=== PATIENT | male | born 1960 | race Two or more races ===

== ENCOUNTER 2021-11-21 15:41 | Emergency (ER) | payer OTHER ==
[2021-11-21] MEDS ORDERED: PANTOPRAZOLE SODIUM 40 MG VIAL IVPUSH ONE (15:48)
[2021-11-21 15:49] VITALS: BMI 27.3
[2021-11-21] MEDS ORDERED: PANTOPRAZOLE SODIUM 40 MG VIAL ONE (15:52)
[2021-11-21 16:15] LABS: BASO % 0.1 % (0-2.0); HEMATOCRIT 20.5 % (35.4-49); LYMPH % 13.1 % (8-40); MCHC 29.7 g/dl (32.0-35.9); MEAN CELL VOLUME 64.1 fl (80-96); MONO % 7.9 % (3.8-10.2); NEUT % 78.9 % (42.8-82.8); PLATELET COUNT 157 10^3/uL (134-434); RBC 3.19 M/mm3 (4.00-5.60); RDW 16.5 % (11.9-15.9); WHITE BLOOD COUNT 12.7 K/mm3 (4.0-10.0)
[2021-11-21 16:19] LABS: VENOUS BASE EXCESS -5.5 mmol/L (-2-2); VENOUS O2 SATURATION 55.9 % (70-80); VENOUS PCO2 45.5 mmHg (38-52)
[2021-11-21 16:20] LABS: INR 1.35 (0.83-1.09); PROTHROMBIN TIME (PATIENT) 15.6 SEC (9.7-13.0)
[2021-11-21 16:22] LABS: MCH 19.1 pg (25.7-33.7)
[2021-11-21 16:24] LABS: HEMOGLOBIN 6.1 GM/dL (11.7-16.9)
[2021-11-21 16:24] LABS: VENOUS PH 7.279 (7.310-7.410)
[2021-11-21 16:35] LABS: ALBUMIN 2.6 g/dl (3.4-5.0); BLOOD UREA NITROGEN 46.3 mg/dL (7-18); CALCIUM 8.4 mg/dL (8.5-10.1)
[2021-11-21 16:38] LABS: CREATININE 1.1 mg/dL (0.55-1.3)
[2021-11-21 16:40] LABS: ANISOCYTOSIS 3+; BILIRUBIN,TOTAL 0.4 mg/dL (0.2-1); MACROCYTOSIS 0; TEAR DROP CELLS 1+; TOT PROT 5.4 g/dl (6.4-8.2)
[2021-11-21 16:45] LABS: LACTIC ACID 4.4 mmol/L (0.4-2.0)
[2021-11-21] MEDS ORDERED: CEFTRIAXONE 1,000 MG in DEXTROSE 5%-WATER - 50 ML IVPB ONE (18:46)
[2021-11-21] MEDS ORDERED: AZITHROMYCIN IVPB 500 MG in DEXTROSE 5%-WATER - 250 ML IVPB ONE (18:47)
[2021-11-21] MEDS ORDERED: ACETAMINOPHEN 1000 MG/100 ML BAG IVPB ONE (19:48)
[2021-11-21] MEDS ORDERED: ACETAMINOPHEN INJECTION 100 ML IVPB ONE (19:49)
[2021-11-22 02:32] VITALS: BP 120/71; PULSE 96; TEMP 98.7
== END 2021-11-22 02:34 | disposition short-term general hospital (02) ==
LOC: JER 15:41
PROC: 3E03329 Introduction of Other Anti-infective into Peripheral Vein, Percutaneous Approach (ICD-10-PCS; principal; 2021-11-21)
PROC: 3E03329 Introduction of Other Anti-infective into Peripheral Vein, Percutaneous Approach (ICD-10-PCS; 2021-11-21)
PROC: 3E033NZ Introduction of Analgesics, Hypnotics, Sedatives into Peripheral Vein, Percutaneous Approach (ICD-10-PCS; 2021-11-21)
DX: J95.830 Postprocedural hemorrhage of a respiratory system organ or structure following a respiratory system procedure (principal); D64.9 Anemia, unspecified
CPT/HCPCS: 0241U-QW; 36415; 36430; 71045-TC-FY; 80053; 82272; 82803; 83605; 84484; 85025; 85610; 85730; 86850; 86900; 86901; 86922; 87040; 93005; 93010; 99284-25; P9058

== ENCOUNTER 2023-10-02 05:11 | Day surgery (SDC) | payer OTHER ==
[2023-10-01 08:56] VITALS: BMI 28.6
[2023-10-02 10:07] LABS: INR 1.1 (0.83-1.09); PROTHROMBIN TIME (PATIENT) 12.8 SEC (9.7-13.0)
[2023-10-02] MEDS: ENOXAPARIN NA (PORCINE) 80 MG/0.8 ML DISP.SYRIN SQ ONE (11:58)
[2023-10-02 12:04] VITALS: TEMP 98.6
[2023-10-02 12:10] VITALS: BP 96/65; PULSE 57; RESP 17
== END 2023-10-02 12:21 | disposition home or self-care (01) ==
LOC: JASU-ENDO 05:11
PROVIDERS: ATTEND Internal Medicine Gastroenterology
PROC: 0DJD8ZZ Inspection of Lower Intestinal Tract, Via Natural or Artificial Opening Endoscopic (ICD-10-PCS; principal; 2023-10-02 10:30)
DX: K92.1 Melena (principal); K64.8 Other hemorrhoids
CPT/HCPCS: 36415; 85610